=== PATIENT | female | born 1955 | race Caucasian/White ===

== ENCOUNTER 2019-06-30 09:01 | Day surgery (SDC) | payer OTHER ==
[~2019-06-30] VITALS: Ht 152.4 cm; Wt 107.9 kg
[~2019-06-30 09:01] MED LIST: ACET325 PO; ACET500 PO; Aspir 8181 MG PO; Bupropion Xl150 MG PO; CEPH500 PO; CREON DR 12,001 EACH PO; FURO20 PO; IBUP400 PO; LEVSOD88 PO; LISHYD1012 PO; LISI20 PO; LISI5 PO; METO25ER PO; METO50 PO; METO50ER PO; Micro-K10 MEQ PO; NITR.6SL SL; ONDA4 PO; ONDA4ODT MM; PAIN RELIEVER500 MG PO; POTA10T PO; PRAV20 PO; Synthroid88 MCG PO
[2019-06-30] MEDS ORDERED: FAMO10 (09:25)
== END 2019-06-30 10:55 | disposition home or self-care (01) ==
LOC: ORSCSDS 09:01
PROVIDERS: Surgery
PROC: 0DBK8ZX Excision of Ascending Colon, Via Natural or Artificial Opening Endoscopic, Diagnostic (ICD-10-PCS; principal; 2019-06-30 10:15)
DX: Z12.11 Encounter for screening for malignant neoplasm of colon (principal); D12.2 Benign neoplasm of ascending colon; Z86.010 Personal history of colon polyps; Z80.0 Family history of malignant neoplasm of digestive organs; I10 Essential (primary) hypertension; E03.9 Hypothyroidism, unspecified; G47.33 Obstructive sleep apnea (adult) (pediatric); F32.9 Major depressive disorder, single episode, unspecified; Z79.899 Other long term (current) drug therapy
CPT/HCPCS: 88305; J2704; J7120

== ENCOUNTER 2021-03-31 12:30 | Emergency (ER) | payer OTHER ==
[~2021-03-31] VITALS: Ht 152.4 cm; Wt 109.3 kg
[~2021-03-31 12:30] MED LIST changes: +FAMO10
[2021-03-31] MEDS ORDERED: LIDO700A20 TOP (14:07)
== END 2021-03-31 14:35 | disposition home or self-care (01) ==
LOC: ER 12:30
DX: S83.92XA Sprain of unspecified site of left knee, initial encounter (principal); I10 Essential (primary) hypertension; Z88.0 Allergy status to penicillin; Z88.2 Allergy status to sulfonamides; Z88.5 Allergy status to narcotic agent; Z79.899 Other long term (current) drug therapy; X50.1XXA Overexertion from prolonged static or awkward postures, initial encounter
CPT/HCPCS: 73562-LT; 99283-25; A9270

== ENCOUNTER → 2022-10-04 | Outpatient (CLI) | payer OTHER ==
[~2022-10-04] MED LIST changes: +LIDO700A20 TOP
[2022-10-05 14:17] LABS: Adenovirus F 40/41 Not Detected (NOT DETECT); Astrovirus Not Detected (NOT DETECT); Campylobacter Sp Not Detected (NOT DETECT); Cryptosporidium Not Detected (NOT DETECT); Cyclospora Cayetanensis Not Detected (NOT DETECT); E. Coli O157 Not Detected (NOT DETECT); Entamoeba Histolytica Not Detected (NOT DETECT); Enteroaggregative E. coli-EAEC Not Detected (NOT DETECT); Enteropathogenic E. coli-EPEC Not Detected (NOT DETECT); Enterotoxigenic E. coli-ETEC Not Detected (NOT DETECT); Giardia Lamblia Not Detected (NOT DETECT); Norovirus GI/GII Not Detected (NOT DETECT); Plesiomonas Shigelloides Not Detected (NOT DETECT); Rotavirus A Not Detected (NOT DETECT); Salmonella Sp Not Detected (NOT DETECT); Sapovirus Not Detected (NOT DETECT); Shiga Toxin-prod E. coli-STEC Not Detected (NOT DETECT); Shigella/Enteroin E. coli-EIEC Not Detected (NOT DETECT); Vibrio Cholerae Not Detected (NOT DETECT); Vibrio Sp Not Detected (NOT DETECT); Yersinia Enterocolitica Not Detected (NOT DETECT)
== END | disposition home or self-care (01) ==
LOC: LAB 10:13 → LAB SHORT 10-05 10:13 → LAB 10-05 10:13
PROVIDERS: Internal Medicine
DX: R19.7 Diarrhea, unspecified (principal)
CPT/HCPCS: 87507

== ENCOUNTER 2025-05-07 07:37 | Day surgery (SDC) | payer OTHER ==
[~2025-05-07] VITALS: Ht 152.4 cm; Wt 81.8 kg
[~2025-05-07 07:37] MED LIST changes: +LEVSOD100 PO; +OZEMPIC0.25 MG/02 SC; -Synthroid88 MCG PO
[2025-05-07 08:28] VITALS: BP 132/70
--- NOTE | 2025-05-07 08:40 | NUR ---
History, Chart, Medications and Allergies reviewed before start of procedure. Patient states colon prep results LIGHT RED WITH NO SEDIMENT. Lungs clear T/O to Auscultation. Patient confirms NPO status and agrees with scheduled surgery. Pre-Op teaching done. Pt verbalizes understanding.
--- NOTE | 2025-05-07 09:39 | NUR ---
05/07/25 0933 Michael Luna History, Chart, Medications and Allergies reviewed before start of procedure. MONITOR INTACT WITH CONTINUOUS PULSE OXIMETRY, CONTINUOUS END TITAL CO2, 3-LEAD EKG AND INTERMITTENT BLOOD PRESSURE. 3-LEAD EKG REVIEWED WITH PHYSICIAN PRIOR TO START OF PROCEDURE. O2 VIA POM INTACT THROUGHOUT SEDATION/PROCEDURE.
[2025-05-07 10:00] VITALS: BP 104/58
--- NOTE | 2025-05-07 10:20 | NUR ---
PT W/STRONG URGE TO VOID. ABLE TO GET UP AND DRESSED. W/C TO BR. VOIDED W/O DIFFICULTY OR INCIDENT. Discharge instructions reviewed with patient. Patient verbalizes understanding. Copy given to patient to take home. Patient up to Ambulate independently. Gait steady. Discharged via wheelchair to private car for ride home PER . BELONGINGS W/PT
== END 2025-05-07 10:20 | disposition home or self-care (01) ==
LOC: ORSCMMR 07:37
PROVIDERS: Surgery
PROC: 0DJD8ZZ Inspection of Lower Intestinal Tract, Via Natural or Artificial Opening Endoscopic (ICD-10-PCS; principal; 2025-05-07 09:45)
DX: Z12.11 Encounter for screening for malignant neoplasm of colon (principal); Z86.0100 Personal history of colon polyps, unspecified; Z80.0 Family history of malignant neoplasm of digestive organs; E11.9 Type 2 diabetes mellitus without complications; I10 Essential (primary) hypertension; G47.33 Obstructive sleep apnea (adult) (pediatric); E66.9 Obesity, unspecified; Z71.3 Dietary counseling and surveillance; Z68.35 Body mass index [BMI] 35.0-35.9, adult; Z79.85 Long-term (current) use of injectable non-insulin antidiabetic drugs; Z79.899 Other long term (current) drug therapy
CPT/HCPCS: 82947; J2704; J7120